=== PATIENT | female | born 1945 | race Caucasian/White ===

== ENCOUNTER 2017-01-14 01:29 | Emergency (ER) | payer MEDICARE, OTHER ==
[~2017-01-14] VITALS: Ht 157.5 cm; Wt 60.0 kg
[~2017-01-14 01:29] MED LIST: CLON-379 PO; HYDR-3498 PO; LANS30CA PO; METOPROLOL PO; MYCO360T3 PO; NIFE90TA21 PO; PRED5 PO; TACR1CAP26 PO
[2017-01-14 01:41] VITALS: Ht 157.5 cm; Wt 60.0 kg
[2017-01-14] MEDS ORDERED: SOD CHLORIDE 0.9% 1,000 ML IV STA (01:52)
[2017-01-14] MEDS ORDERED: KETOROLAC 15 MG INJ IV STA (01:52)
[2017-01-14] MEDS ORDERED: LORAZEPAM 0.5 MG TAB PO ONE (02:00)
[2017-01-14 02:22] LABS: ADD SCAN DIFF NO
[2017-01-14 02:23] LABS: BASOPHILS % 0.4 % (0.0-2.0); EOSINOPHILS # 0.1 10^3/ul (0.0-0.5); EOSINOPHILS % 1.6 % (0.0-7.0); HEMATOCRIT 32.1 % (37.0-47.0); HEMOGLOBIN 10.4 g/dl (12.0-16.0); LYMPHOCYTES % 19.4 % (15.0-51.0); MEAN CORPUSCULAR HEMOGLOBIN 29.4 pg (29.0-33.0); MEAN CORPUSCULAR HGB CONC 32.4 g/dl (32.0-37.0); MEAN CORPUSCULAR VOLUME 90.7 fl (82.0-101.0); MEAN PLATELET VOLUME 9.7 fl (7.4-10.4); MONOCYTE # 0.6 10^3/ul (0.3-0.9); MONOCYTES % 11.5 % (0.0-11.0); NEUTROPHIL # 3.2 10^3/ul (1.6-7.5); NEUTROPHILS % 65.9 % (39.0-77.0); PLATELET COUNT 132 10^3/UL (140-415); RED BLOOD COUNT 3.54 10^6/ul (4.20-5.40); RED CELL DISTRIBUTION WIDTH 14.6 % (11.5-14.5); WHITE BLOOD COUNT 4.9 10^3/ul (4.8-10.8)
[2017-01-14 02:47] LABS: ALANINE AMINOTRANSFERASE 27 IU/L (13-69); ALBUMIN 3.6 g/dl (3.3-4.9); ALBUMIN/GLOBULIN RATIO 1.24; ALKALINE PHOSPHATASE 82 IU/L (42-121); ANION GAP 10 (8-16); ASPARTATE AMINO TRANSFERASE 19 IU/L (15-46); BLOOD UREA NITROGEN 34 mg/dl (7-20); CALCIUM 9.2 mg/dl (8.4-10.2); CARBON DIOXIDE 22 mmol/L (21-31); CHLORIDE 110 mmol/L (97-110); CREATININE 1.02 mg/dl (0.44-1.00); GLUCOSE 97 mg/dl (70-220); POTASSIUM 4.2 mmol/L (3.5-5.1); SODIUM 138 mmol/L (135-144); TOTAL PROTEIN 6.5 g/dl (6.1-8.1)
[2017-01-14] MEDS ORDERED: CARI350T PO (02:58)
[2017-01-14] MEDS ORDERED: NAPR-260 PO (02:58)
--- NOTE | 2017-01-14 02:58 | ERA ---
ER Documentation Chief Complaint Date/Time DATE: 01/14/17 TIME: 02:54 Chief Complaint bib RA c/o left scapular pain radiates around to axila 3-4hrs, HPI 71-year-old woman brought in by EMS from home for complaints of left shoulder pain, anxiety, insomnia, and hypertension. She has had the shoulder pain all day long and it got worse this evening. She has had no chest pain, no fevers or chills, no headache or blurry vision, no vomiting or diarrhea. Patient was transported here by EMS without any complications. ROS All systems reviewed and are negative except as per history of present illness. Medications Home Meds Active Scripts Carisoprodol* (Soma*) 350 Mg Tablet, 350 MG PO BID Y for MUSCLE SPASMS, #15 TAB Prov:TERRA MO MD 01/14/17 Naproxen* (Naprosyn*) 500 Mg Tablet, 500 MG PO BID Y for PAIN AND/OR INFLAMMATION, #30 TAB Prov:TERRA MO MD 01/14/17 Reported Medications Cholecalciferol* (Vitamin D*) 400 Unit Tablet, 400 UNIT PO DAILY, TAB 01/14/17 Hydralazine Hcl* (Hydralazine Hcl*) 50 Mg Tab, 50 MG PO TID, #90 TAB 01/14/17 Nifedipine* (Nifedipine ER*) 90 Mg Tablet.sa, 90 MG PO DAILY, TAB.SA 07/22/15 Clonidine Hcl* (Clonidine Hcl*) 0.1 Mg Tab, 0.1 MG PO Q8 for ELEVATED SYSTOLIC BP, TAB 07/22/15 Prednisone* (Prednisone*) 5 Mg Tab, 5 MG PO DAILY, TAB 07/22/15 Mycophenolate Sodium* (Mycophenolic Acid*) 360 Mg Tablet.dr, 360 MG PO BID, TAB 07/22/15 Tacrolimus* (Prograf*) 1 Mg Capsule, 2 MG PO Q12, CAP 07/22/15 Metoprolol , 100 MG PO DAILY 01/02/11 Discontinued Reported Medications Lansoprazole* (Lansoprazole*) 30 Mg Capsule.dr, 30 MG PO DAILY, CAP 07/22/15 Discontinued Scripts Hydrocodone Bit-Acetaminophen* (Williams*) 5-325 Mg Tab, 1 TAB PO Q6 Y for PAIN, # 20 TAB Prov:SINDY ABRAHAM NP 07/22/15 Allergies Allergies: Coded Allergies: No Known Allergy (Verified Allergy, Unknown, 03/31/07) PMhx/Soc Anxiety, hypertension, gastritis History of Surgery: Yes (KIDNEY SURGERY TRANSPLANT 10/05) Anesthesia Reaction: No Hx Neurological Disorder: No Hx Respiratory Disorders: No Hx Cardiac Disorders: Yes (HTN) Hx Psychiatric Problems: No Hx Miscellaneous Medical Probl: Yes (hereditary kidney ds, 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 No submandibular induration, and no pharyngeal erythema NEURO: Alert and oriented 3, cranial nerves II through XII intact bilaterally, pupils equal round reactive to light, no focal deficits or facial asymmetry, sensation intact distally Strength 5/5 in upper and lower extremities bilaterally CARDIAC: Regular rate and rhythm, no murmurs rubs or gallops LUNGS: Clear bilaterally no wheezing crackles or stridor ABDOMEN: Soft nontender, no guarding, no rigidity, no rebound, no psoas sign no obturator sign. Normoactive bowel sounds SKIN: Warm and dry to touch, no abrasions, contusions, or hematomas, no lacerations, no ecchymosis, no target lesions, and without ulcers EXTREMITIES: No clubbing cyanosis or edema, calves are bilaterally symmetrical, no Homans sign, no popliteal cord sign. Distal pulses equal and bilateral PSYCH: Anxious Result Diagram: 01/14/17 0200 01/14/17 0200 Results 24 hrs Laboratory Tests Test 01/14/17 02:00 White Blood Count 4.910^3/ul Red Blood Count 3.5410^6/ul Hemoglobin 10.4g/dl Hematocrit 32.1% Mean Corpuscular Volume 90.7fl Mean Corpuscular Hemoglobin 29.4pg Mean Corpuscular Hemoglobin Concent 32.4g/dl Red Cell Distribution Width 14.6% Platelet Count 94803^3/UL Mean Platelet Volume 9.7fl Neutrophils % 65.9% Lymphocytes % 19.4% Monocytes % 11.5% Eosinophils % 1.6% Basophils % 0.4% Nucleated Red Blood Cells % 0.0/100WBC Neutrophils # 3.210^3/ul Lymphocytes # 1.010^3/ul Monocytes # 0.610^3/ul Eosinophils # 0.110^3/ul Basophils # 0.010^3/ul Nucleated Red Blood Cells # 0.010^3/ul Sodium Level 138mmol/L Potassium Level 4.2mmol/L Chloride Level 110mmol/L Carbon Dioxide Level 22mmol/L Anion Gap 10 Blood Urea Nitrogen 34mg/dl Creatinine 1.02mg/dl Glucose Level 97mg/dl Calcium Level 9.2mg/dl Total Bilirubin 0.0mg/dl Direct Bilirubin 0.00mg/dl Indirect Bilirubin 0.0mg/dl Aspartate Amino Transf (AST/SGOT) 19IU/L Alanine Aminotransferase (ALT/SGPT) 27IU/L Alkaline Phosphatase 82IU/L Troponin I < 0.012ng/ml Total Protein 6.5g/dl Albumin 3.6g/dl Globulin 2.90g/dl Albumin/Globulin Ratio 1.24 Lipase 149U/L Current Medications Medications (Trade) Dose Ordered Sig/Christa Route PRN Reason Start Time Stop Time Status Last Admin Dose Admin Sodium Chloride (NS) 1,000 ml @ 1,000 mls/hr Q1H STAT IV 01/14/17 01:52 01/14/17 02:51 DC 01/14/17 01:59 Ketorolac Tromethamine (Toradol) 15 mg ONCE STAT IV 01/14/17 01:52 01/14/17 01:53 DC 01/14/17 01:59 Lorazepam (Ativan) 0.5 mg ONCE ONCE PO 01/14/17 02:00 01/14/17 02:01 DC 01/14/17 01:59 Procedures/MDM IV line was established patient was placed on monitor car operator rhythm strip revealed a bradycardia at about 60 bpm with upright P and T waves. Patient was afebrile. EKG performed, read by me revealed a sinus bradycardia 54 bpm, left axis deviation, and a right ventricular conduction delay with a QRS duration of 104 ms, no concerning ST elevations or depressions noted. I administered 1 L normal saline intravenously, Toradol 15 mg IV, and lorazepam 0.5 mg p.o. with good results. Patient symptoms improved, shoulder pain improved. CBC was normal, electrolytes were fairly unremarkable but it appears she may be dehydrated, liver function tests were normal, troponin was negative. Patient's blood pressure improved. Differential diagnoses considered, included but not limited to acute coronary syndrome, pulmonary embolism, aortic dissection, abdominal aortic aneurysm, sepsis, stroke, meningitis, encephalitis, pneumonia, appendicitis, cholecystitis , bowel obstruction, pyelonephritis, nephrolithiasis, cystitis, as well as metabolic, hematologic, and electrolyte abnormalities. As well as abscess, cellulitis, fractures, and dislocations. Patient feels much better at this time, and vital signs are normal, symptoms have improved. I did give strict instructions to return to the ED if symptoms continue or worsen, patient will otherwise follow-up with primary care physician. Patient understood instructions and agreed to plan. Disclaimer: Inadvertent spelling or grammatical errors are likely due to EHR/ dictation software use and do not reflect on the overall quality of patient care. Departure Diagnosis: Primary Impression: Hypertension Qualified Code: I10 - Essential hypertension Additional Impressions: Shoulder pain Qualified Code: M25.512 - Acute pain of left shoulder Insomnia Qualified Code: F51.01 - Primary insomnia Dehydration Condition: Good TERRA MO MD January 14, 2017 02:58
[2017-01-14 02:59] LABS: TROPONIN-I < 0.012 ng/ml (0.00-0.12)
[2017-01-14 03:11] VITALS: BP 148/71; PULSE 57; RESP 20; TEMP 98.1
[2017-01-14] MEDS ORDERED: CHOL400T10 PO (03:20)
[2017-01-14] MEDS ORDERED: HYDR-3672 PO (03:20)
== END 2017-01-14 03:11 | disposition home or self-care (01) ==
LOC: E/R 01:29
DX: I10 Essential (primary) hypertension (principal); F51.01 Primary insomnia; E86.0 Dehydration
CPT/HCPCS: 80053; 83690; 84484; 85025; J1885; J7030; 36415; 93005; 96374

== ENCOUNTER 2019-01-24 23:25 | Inpatient (IN) | payer MEDICARE, OTHER ==
[~2019-01-24] VITALS: Ht 160 cm; Wt 65.2 kg
[~2019-01-24 23:25] MED LIST changes: +CARI350T PO; +CHOL400T10 PO; -HYDR-3498 PO; +HYDR-3672 PO; -LANS30CA PO; +NAPR-985 PO; -PRED5 PO; +PRED5TAB PO
[2019-01-25] MEDS ORDERED: ASPIRIN 81 MG TAB PO ONE (01:30)
[2019-01-25] MEDS ORDERED: ACETAMINOPHEN 325 MG TAB PO PRN ×2 (01:30→02:30)
[2019-01-25] MEDS ORDERED: ONDANSETRON 4 MG INJ IV PRN ×2 (01:30→02:30)
[2019-01-25] MEDS ORDERED: FUROSEMIDE 20 MG INJ IV SCH (02:30)
[2019-01-25] MEDS ORDERED: NITROGLYCERIN (SL) 0.4 MG TAB SL PRN (02:30)
[2019-01-25] MEDS ORDERED: MAGNESIUM HYDROXIDE 30ML CUP PO PRN (02:30)
[2019-01-25] MEDS ORDERED: NACL 0.9% 3 ML SYG IV SCH (02:30)
[2019-01-25] MEDS ORDERED: morphine 2 MG INJ IV PRN (02:30)
[2019-01-25] MEDS ORDERED: LORAZEPAM 2 MG INJ IV PRN (02:30)
[2019-01-25] MEDS ORDERED: hydrALAzine 20 MG INJ IV PRN (02:30)
[2019-01-25] MEDS ORDERED: HYDROCODONE/APAP (5/325) TAB PO PRN (02:30)
[2019-01-25] MEDS ORDERED: DOCUSATE SODIUM 100 MG CAP PO PRN (02:30)
[2019-01-25] MEDS ORDERED: ALBUTEROL/IPRATROPIUM (NEB) 3 ML AMP HHN PRN (02:30)
--- NOTE | 2019-01-25 03:01 | ERD ---
ER Documentation Chief Complaint Chief Complaint tachycardia/htn @ home w/ DAMIAN, SOB. no CP/weakness. took 2 50mg Metoprolol HPI 73-year-old female who presents to the emergency with palpitations. The patient has been evaluated with recent hospitalization for palpitations approximately 2 weeks ago with negative work-up. Patient recently saw her electrical unit rebuilder to 3 days ago, Dr. Parikh that was also normal. Patient today describes some palpitations it with a home monitor that showed elevated heart rate occasionally in the 150 range. The patient denied any chest pain or pressure. Currently she is asymptomatic. She denies any fevers chills or shortness of breath. The patient occasionally gets headaches with these episodes. ROS All systems reviewed and are negative except as per history of present illness. Medications Home Meds Active Scripts Carisoprodol* (Soma*) 350 Mg Tablet, 350 MG PO BID PRN for MUSCLE SPASMS, #15 TAB Prov:TERRA MO MD 01/14/17 Naproxen* (Naprosyn*) 500 Mg Tablet, 500 MG PO BID PRN for PAIN AND/OR INFLAMMA TION, #30 TAB Prov:TERRA MO MD 01/14/17 Reported Medications Cholecalciferol* (Vitamin D*) 400 Unit Tablet, 400 UNIT PO DAILY, TAB 01/14/17 Hydralazine Hcl* (Hydralazine Hcl*) 50 Mg Tab, 50 MG PO TID, #90 TAB 01/14/17 Nifedipine* (Nifedipine ER*) 90 Mg Tablet.sa, 90 MG PO DAILY, TAB.SA 07/22/15 Clonidine Hcl* (Clonidine Hcl*) 0.1 Mg Tab, 0.1 MG PO Q8 for ELEVATED SYSTOLIC BP, TAB 07/22/15 Prednisone* (Prednisone*) 5 Mg Tab, 5 MG PO DAILY, TAB 07/22/15 Mycophenolate Sodium* (Mycophenolic Acid*) 360 Mg Tablet.dr, 360 MG PO BID, TAB 07/22/15 Tacrolimus* (Prograf*) 1 Mg Capsule, 2 MG PO Q12, CAP 07/22/15 Metoprolol , 100 MG PO DAILY 01/02/11 Allergies Allergies: Coded Allergies: No Known Allergy (Verified Allergy, Unknown, 03/31/07) PMhx/Soc History of Surgery: Yes (KIDNEY SURGERY TRANSPLANT 2/15) Anesthesia Reaction: No Hx Neurological Disorder: No Hx Respiratory Disorders: No Hx Cardiac Disorders: Yes (HTN) Hx Psychiatric Problems: No Hx Miscellaneous Medical Probl: Yes (hereditary kidney ds, 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 Eyes: Pupils equally reactive, EOM intact ENT: Moist mucous membranes Neck: Supple, no lymphadenopathy Respiratory: Lungs clear bilaterally, no distress Cardiovascular: RRR, no murmurs, rubs, or gallops Abdominal: Soft, non-tender, non-distended, no peritoneal signs : Deferred MSK: No edema, no unilateral swelling, 5/5 strength Neurologic: Alert and oriented, moving all extremities, normal speech, no focal weakness, no cerebellar signs Skin: No rash Psych: Normal mood Result Diagram: 01/25/19 0005 01/25/19 0005 Results 24 hrs Laboratory Tests Test 01/25/19 00:05 White Blood Count 7.3 10^3/ul Red Blood Count 4.04 10^6/ul Hemoglobin 12.0 g/dl Hematocrit 36.7 % Mean Corpuscular Volume 90.8 fl Mean Corpuscular Hemoglobin 29.7 pg Mean Corpuscular Hemoglobin Concent 32.7 g/dl Red Cell Distribution Width 14.2 % Platelet Count 137 10^3/UL Mean Platelet Volume 9.8 fl Immature Granulocytes % 1.000 % Neutrophils % 71.2 % Lymphocytes % 17.5 % Monocytes % 9.3 % Eosinophils % 0.7 % Basophils % 0.3 % Nucleated Red Blood Cells % 0.0 /100WBC Immature Granulocytes # 0.070 10^3/ul Neutrophils # 5.2 10^3/ul Lymphocytes # 1.3 10^3/ul Monocytes # 0.7 10^3/ul Eosinophils # 0.1 10^3/ul Basophils # 0.0 10^3/ul Nucleated Red Blood Cells # 0.0 10^3/ul Sodium Level 139 mmol/L Potassium Level 3.8 mmol/L Chloride Level 106 mmol/L Carbon Dioxide Level 20 mmol/L Anion Gap 13 Blood Urea Nitrogen 53 mg/dl Creatinine 1.75 mg/dl Est Glomerular Filtrat Rate mL/min mL/min Glucose Level 232 mg/dl Calcium Level 9.3 mg/dl Troponin I 0.526 ng/ml B-Type Natriuretic Peptide 4890 PG/ML Free Thyroxine 1.38 ng/dl Current Medications Medications Dose Sig/Christa Start Time Status Last (Trade) Ordered Route PRN Stop Time Admin Dose Reason Admin Aspirin 324 mg ONCE ONCE 01/25/19 DC 01/25/19 (Aspirin) PO 01:30 01/25/19 01:32 01:31 Ondansetron 4 mg ER BRIDGE 01/25/19 HCl (Zofran PRN IV 01:30 01/26/19 Inj) NAUSEA/VOMITI 01:29 NG 650 mg ER BRIDGE 01/25/19 Acetaminophen PRN PO 01:30 01/26/19 (Tylenol .MILD PAIN 01:29 Tab) 1-3 OR TEMP IV Flush 3 ml PER 01/25/19 (NS 3 ml) PROTOCOL IV 02:30 Ondansetron 4 mg Q6H PRN 01/25/19 HCl (Zofran IV 02:30 Inj) NAUSEA/VOMITI NG 650 mg Q6H PRN 01/25/19 Acetaminophen PO .PAIN 1-3 02:30 (Tylenol OR TEMP Tab) 1 tab Q6H PRN 01/25/19 Acetaminophen PO .MOD PAIN 02:30 / 4-6 Hydrocodone Bitart ([place] (5/325)) Morphine 2 mg Q4H PRN 01/25/19 Sulfate IV .SEVERE 02:30 (morphine) PAIN 7-10 Docusate 100 mg Q12H PRN 01/25/19 Sodium PO 02:30 (Colace) .CONSTIPATION Magnesium 30 ml DAILY PRN 01/25/19 Hydroxide PO 02:30 (Milk Of Mag) .CONSTIPATION Lorazepam 0.5 mg Q6H PRN 01/25/19 (Ativan) IV ANXIETY 02:30 Albuterol/ 3 ml Q4H RESP 01/25/19 Ipratropium THERAPY PRN 02:30 (Duoneb) HHN SHORTNESS OF BREATH Hydralazine 10 mg Q6H PRN 01/25/19 HCl IV ELEVATED 02:30 (Apresoline) BLOOD PRESSURE 1 tab Q5M PRN 01/25/19 Nitroglycerin SL ANGINA 02:30 (Nitroglyceri n (Sl Tab) 0.4 Mg) Aspirin 325 mg DAILY PO 01/25/19 (Ecotrin) 09:00 Furosemide 20 mg DAILY@0600 01/25/19 (Lasix) IV 02:30 Procedures/MDM EKG, MONITORS, & DIAGNOSTIC IMAGING: EKG: I reviewed and interpreted a 12-lead EKG. Rhythm: Normal sinus rhythm ST Changes: Irregular ST segment in 1 and aVL and abnormal ST segment in lead aVR T waves: No contiguous T wave inversions Impression: Abnormal EKG Repeat EKG: EKG: I reviewed and interpreted a 12-lead EKG. Rhythm: Normal sinus rhythm ST Changes: Irregular ST segment in 1 and aVL and abnormal ST segment in lead aVR T waves: No contiguous T wave inversions Impression: Abnormal EKG Chest x-ray: I reviewed and interpreted a 1 view of the chest Mediastinum: No enlargement Cardiac silhouette: No cardiomegaly Airspace: Clear lung lee bilaterally without evidence of pneumothorax Bones: No evidence of fracture PROCEDURES: [None] LAB INTERPRETATION: * Slight troponin elevation MEDICAL DECISION MAKING: The patient's history, physical exam and clinical presentation is broad. The patient has had a work-up that includes evaluation for idiopathic tachycardia. Consider possible paroxysmal atrial fibrillation with the patient has not had a 24-hour Holter monitor without results. She had no chest pain today, cardiac etiology must be considered. I had initial conversation with Dr. Parikh and discussed that given rec ent work-up if everything is normal the patient can be safely followed in his office. He agrees. However troponin elevation prompts inpatient hospitalization The patient's initial EKGs came back abnormal. The patient had no chest pain. Dr. Pryor, on-call purchasing engineer reviewed EKGs and agrees that the patient does not need to be taken emergently to Fire Engine Pump Operator. Medical management appropriate. Based on the patient's clinical exam and history and risk factors, I have a much lower clinical concern for pulmonary embolism, acute aortic dissection, pneumothorax, pneumonia, cardiac tamponade ER COURSE: * Patient is asymptomatic. No chest pain. Aspirin provided. CONSULTATION: Interventional cardiology as documented above DISPOSITION PLAN: Telemetry admission for management of chest pain to rule out acute coronary syndrome, serial enzymes, risk stratification and consideration of provocative testing CONSULTATION: Accepting care team and consultations: I discussed the current laboratory data, diagnostic imaging and emergency care provided. Admitting team: Dr. Kumar Admitting team indication: Insurance directed Departure Diagnosis: Primary Impression: NSTEMI (non-ST elevated myocardial infarction) Additional Impression: Acute renal insufficiency Condition: Stable MAHNAZ MCMAHON MD Jan 25, 2019 03:01
[2019-01-25] MEDS ORDERED: AMLO-145 PO (03:47)
[2019-01-25] MEDS ORDERED: LOSA100T15 PO (03:47)
[2019-01-25] MEDS ORDERED: PANT40TA4 PO (03:47)
[2019-01-25] MEDS ORDERED: SITA50TA2 PO (03:47)
[2019-01-25] MEDS ORDERED: TERA5CAP3 PO (03:47)
[2019-01-25] MEDS ORDERED: METO-335 PO (03:47)
[2019-01-25] MEDS ORDERED: TERA10CA3 PO (03:47)
[2019-01-25] MEDS ORDERED: TACR0.5C18 PO (03:47)
[2019-01-25] MEDS ORDERED: FURO20TA3 PO (03:47)
[2019-01-25 05:28] VITALS: PULSE 55
[2019-01-25 05:34] VITALS: BP 143/66; PULSE 52; RESP 20
[2019-01-25 05:36] VITALS: Ht 160 cm; Wt 65.2 kg
[2019-01-25] MEDS ORDERED: PANTOPRAZOLE (EC) 40 MG TAB PO SCH (07:00)
[2019-01-25] MEDS: ATORVASTATIN 80 MG TAB PO ONE ×2 (07:06→07:08)
--- NOTE | 2019-01-25 07:19 | HP ---
DATE OF ADMISSION: 01/25/2019 This is a 73-year-old female. CHIEF COMPLAINT: Palpitations, tachycardia, shortness of breath. HISTORY OF PRESENT ILLNESS: A 73-year-old female with a past medical history of kidney transplant oc curred 4 years ago in [place], hypertension who comes in with some palpitations and chest pain. Th e patient apparently saw her outpatient greens picker, Dr. Romero almost 1 week ago and had acco rding to the family a full workup which was negative at that time. However, sometime last night gato ent had some palpitations. Denied any upper or lower GI bleeding, no nausea, vomiting, no fevers or chills, no diarrhea or constipation. She had a home monitor apparently that showed heart rate elevat ion in the 150s range, so family became concerned and decided to bring her into the ER today. She wa s also complaining of headaches. When she came in today, she was found with a creatinine of 1.75 and her troponin was elevated at 0.5 to 6 and a call was made out for the greens picker to come evaluate the patient. Signs of possible non-ST elevation myocardial infarction. She also had some positive E KG changes. The patient denies any prior history of any stroke or heart attack. PAST MEDICAL HISTORY: As above. ALLERGIES: NO KNOWN DRUG ALLERGIES. HOME MEDICATIONS: 1. Amlodipine 5 mg daily. 2. Clonidine 0.1 mg q.8h. 3. Hydralazine 50 mg t.i.d. 4. Losartan 100 mg daily. 5. Toprol-XL 25 mg daily. 6. Nifedipine 90 mg daily. 7. Terazosin 5 mg daily. 8. Naproxen 500 mg b.i.d. p.r.n. 9. Furosemide 20 mg daily. 10. Protonix 40 mg daily. 11. Januvia 50 mg daily. 12. CellCept 360 mg b.i.d. 13. Tacrolimus 2 mg q.12h. PAST SURGICAL HISTORY: Kidney transplant 4 years ago. Also, multiple abdominal surgeries. SOCIAL HISTORY: Negative for smoking, drinking, or IV drug abuse. FAMILY HISTORY: Noncontributory today. PHYSICAL EXAMINATION: VITAL SIGNS: T-max 98.4, pulse 56 to 70, respirations 23, blood pressure was 161 to 134 systolic ove r 74 to 61 diastolic, satting at 99% on 2 liters nasal cannula. GENERAL: The patient is lying in bed, answering questions appropriately. No acute distress. HEENT: Pupils equal, round, react to light. Extraocular muscles intact. NECK: Supple, no thyromegaly. LUNGS: Clear to auscultation bilaterally. CARDIOVASCULAR: S1, S2 heard. No rubs or gallops. ABDOMEN: Soft, nontender, nondistended. Normal bowel sounds. No rebound or guarding. MUSCULOSKELETAL: No lower extremity edema bilaterally. NEUROLOGIC: No focal deficits. LABORATORIES: CBC is normal except the platelets are 137. Sodium 139, potassium 3.8, chloride 106, CO2 20, BUN 53, creatinine 1.75, glucose 232. The BNP is elevated at 4890. The patient had a chest x-ray shows cardiomegaly and mild pulmonary vascular congestion. ASSESSMENT AND PLAN: 1. A 73-year-old female coming in with palpitations with signs of EKG changes and possible non-ST el evation myocardial infarction. 2. Tachycardia with shortness of breath. Again, symptoms likely secondary to a possible non-ST elev ation myocardial infarction and also mild fluid overload. We will trend the troponins q.6 hours x2 m ore. Continue high dose aspirin, morphine, oxygen, nitroglycerin. Continue home beta reagan medica tion. We will put patient on Lipitor and get a cardiology consult as well. Check TSH, A1c, lipid pa christa. Also, obtain PT, OT and speech therapy consult. 3. Renal insufficiency. Again, patient has a history of kidney transplant. Creatinine appears to b e slightly more elevated. For now for the kidney transplant, continue CellCept and tacrolimus medica tions. We will obtain a renal consult as well. 4. History of hypertension. Again, see #1. Continue current cardiac medications. Blood pressure i s stable at the present time. Dictated By: RICHA STOUT Conf#: [id number] DID#: [id number]
[2019-01-25 07:38] VITALS: BP 144/67; PULSE 52; RESP 22
[2019-01-25] MEDS ORDERED: ENOXAPARIN 80 MG/0.8 ML SYG SC ONE (08:00)
[2019-01-25] MEDS ORDERED: ENOXAPARIN 60 MG/0.6 ML SYG SC ONE (08:00)
[2019-01-25] MEDS: FUROSEMIDE 20 MG TAB PO SCH ×2 (08:26→08:31)
[2019-01-25] MEDS ORDERED: MYCOPHENOLATE (SR) 180 MG TAB PO SCH (09:00)
[2019-01-25] MEDS ORDERED: INSULIN ASPART [NOVOLOG] 3 ML PEN SC SCH (09:00)
[2019-01-25] MEDS ORDERED: METOPROLOL (XL) 25 MG TAB PO SCH (09:00)
[2019-01-25] MEDS ORDERED: TACROLIMUS 1 MG CAP PO SCH ×2 (09:00→21:00)
[2019-01-25] MEDS ORDERED: ASPIRIN (EC) 325 MG TAB PO SCH (09:00)
[2019-01-25] MEDS ORDERED: PRED5TAB PO (10:01)
[2019-01-25] MEDS ORDERED: TERI2.4P SQ (10:01)
[2019-01-25] MEDS ORDERED: CHOL200078 PO (10:01)
[2019-01-25] MEDS ORDERED: CHOLECALCIFEROL 2,000 UNIT CAP PO SCH (11:00)
[2019-01-25] MEDS ORDERED: PATIENT'S OWN MEDICATION PO SCH (11:00)
[2019-01-25] MEDS ORDERED: LINAGLIPTIN 5 MG TABLET PO SCH (11:00)
[2019-01-25] MEDS ORDERED: METOPROLOL 25 MG TAB PO SCH (11:00)
[2019-01-25] MEDS ORDERED: predniSONE 5 MG TAB PO SCH (11:00)
[2019-01-25] MEDS ORDERED: AMLODIPINE 5 MG TAB PO SCH (11:00)
--- NOTE | 2019-01-25 11:43 | DS ---
Date/Time of Note Date/Time of Note DATE: 01/25/19 TIME: 11:39 Discharge Summary Admission/Discharge Info Admit Date/Time Jan 25, 2019 at 01:21 Discharge Date/Time Jan 25, 2019 at 11:18 (AGAINST MEDICAL ADVICE) Discharge Diagnosis NSTEMI Hypertension History of renal transplant Acute kidney injury versus CKD Patient Condition: Stable Consults ,[facility] Hospital Course 73-year-old female with a past medical history of kidney transplant 4 years ago in [place], hypertension brought in by paramedics for sudden palpitation/SOB found to have acute NSTEMI... Patient was admitted. She had cardiology evaluation. Patient was continued on home medications. However, patient and family does not want to stay in [facility]. Instead, they wanted to go to [facility] where patient was recently admitted 10 days ago and her primary care doctor also goes there. Myself and dentist private practice explained in detail the risk of taking patient AGAINST MEDICAL ADVICE to another hospital when she is having an acute myocardial infarction including the possibility of during transfer process. However, patient and family are adamant on leaving hospital. They signed AGAINST MEDICAL ADVICE form and left unit. At time of discharge, patient does not have any chest pain. Her vital signs stable. Patient understood her condition and the risk of leaving AMA, including but not limited to permanent disability, etc., and had an opportunity to ask questions about own medical condition. The patient has been informed that the paient may return for care anytime and has been referred to primary care provider for follow-up as soon as possible. Patient is seen in collaboration with Dr. [facility] Reported Medications Prednisone* (Prednisone*) 5 Mg Tab, 5 MG PO DAILY, TAB 01/25/19 Cholecalciferol (Vitamin D3) (Vitamin D3) 2,000 Unit Tab.chew, 2000 UNIT PO, TAB.CHEW 01/25/19 Teriparatide (Forteo) 2.4 Ml Pen.injctr, 20 MCG SQ DAILY, EA 01/25/19 Metoprolol Succinate* (Toprol XL*) 25 Mg Tab.sr.24h, 25 MG PO BID for 30 Days 01/25/19 Amlodipine Besylate* (Amlodipine Besylate*) 5 Mg Tablet, 5 MG PO BID for 30 Days, #60 01/25/19 Sitagliptin* (Januvia*) 50 Mg Tablet, 25 MG PO DAILY for 30 Days, #30 01/25/19 Pantoprazole* (Pantoprazole*) 40 Mg Tablet.dr, 40 MG PO DAILY for 30 Days, #30 01/25/19 Furosemide* (Furosemide*) 20 Mg Tablet, 20 MG PO DAILY for 30 Days, #30 Every M-W-01/25/19 Clonidine Hcl* (Clonidine Hcl*) 0.1 Mg Tab, 0.1 MG PO Q8 PRN for ELEVATED BLOOD PRESSURE, TAB 07/22/15 Tacrolimus* (Prograf*) 1 Mg Capsule, 1.2 MG PO Q12, CAP 07/22/15 Discontinued Reported Medications Tacrolimus* (Prograf*) 0.5 Mg Capsule, 0.5 MG PO BID for 30 Days 01/25/19 Losartan Potassium* (Losartan Potassium*) 100 Mg Tablet, 100 MG PO DAILY for 30 Days, #30 01/25/19 Terazosin Hcl* (Terazosin Hcl*) 10 Mg Capsule, 10 MG PO DAILY for 30 Days, #30 01/25/19 Terazosin Hcl* (Terazosin Hcl*) 5 Mg Capsule, 5 MG PO DAILY for 30 Days, #30 01/25/19 Cholecalciferol* (Vitamin D*) 400 Unit Tablet, 400 UNIT PO DAILY, TAB 01/14/17 Hydralazine Hcl* (Hydralazine Hcl*) 50 Mg Tab, 50 MG PO TID, #90 TAB 01/14/17 Nifedipine* (Nifedipine ER*) 90 Mg Tablet.sa, 90 MG PO DAILY, TAB.SA 07/22/15 Prednisone* (Prednisone*) 5 Mg Tab, 5 MG PO DAILY, TAB 07/22/15 Mycophenolate Sodium* (Mycophenolic Acid*) 360 Mg Tablet., 360 MG PO BID, TAB 07/22/15 Metoprolol , 100 MG PO DAILY 01/02/11 Discontinued Scripts Carisoprodol* (Soma*) 350 Mg Tablet, 350 MG PO BID PRN for MUSCLE SPASMS, #15 TAB Prov:TERRA MO MD 01/14/17 Primary Care Provider Caren Dahl Pending Labs Laboratory Tests Test 01/25/19 00:05 01/25/19 05:29 01/25/19 05:31 01/25/19 06:53 White Blood 7.3 Count 10^3/ul (4.8-10 .8) Red Blood 4.04 Count 10^6/ul (4.20-5 .40) Hemoglobin 12.0 g/dl (12.0-16.0 ) Hematocrit 36.7 % (37.0-47.0) Mean 90.8 Corpuscular fl (82.0-101.0) Volume Mean 29.7 Corpuscular pg (29.0-33.0) Hemoglobin Mean 32.7 Corpuscular g/dl (32.0-37.0 Hemoglobin Conc ) ent Red Cell 14.2 Distribution % (11.5-14.5) Width Platelet Count 137 10^3/UL (140-41 5) Mean Platelet 9.8 Volume fl (7.4-10.4) Immature 1.000 Granulocytes % % (0.001-0.429) Neutrophils % 71.2 % (39.0-77.0) Lymphocytes % 17.5 % (15.0-51.0) Monocytes % 9.3 % (0.0-11.0) Eosinophils % 0.7 % (0.0-7.0) Basophils % 0.3 % (0.0-2.0) Nucleated Red 0.0 Blood Cells % /100WBC (0.0-0. 0) Immature 0.070 Granulocytes # 10^3/ul (0.0-0. 031) Neutrophils # 5.2 10^3/ul (1.6-7. 5) Lymphocytes # 1.3 10^3/ul (0.8-2. 9) Monocytes # 0.7 10^3/ul (0.3-0. 9) Eosinophils # 0.1 10^3/ul (0.0-0. 5) Basophils # 0.0 10^3/ul (0.0-0. 1) Nucleated Red 0.0 Blood Cells # 10^3/ul (0.0-0. 0) Sodium Level 139 142 mmol/L (135-144 mmol/L (135-14 ) 4) Potassium 3.8 4.5 Level mmol/L (3.5-5.1 mmol/L (3.5-5. ) 1) Chloride Level 106 107 mmol/L (97-110) mmol/L (97-110 ) Carbon Dioxide 20 23 Level mmol/L (21-31) mmol/L (21-31) Anion Gap 13 (5-13) 12 (5-13) Blood Urea 53 mg/dl (7-20) 54 Nitrogen mg/dl (7-20) Creatinine 1.75 1.60 mg/dl (0.44-1.0 mg/dl (0.44-1. 0) 00) Est Glomerular mL/min (>60) mL/min (>60) Filtrat Rate mL/min Glucose Level 232 122 mg/dl (70-220) mg/dl (70-220) Calcium Level 9.3 9.4 mg/dl (8.4-10.2 mg/dl (8.4-10. ) 2) Troponin I 0.526 1.460 1.560 ng/ml (0.000-0. ng/ml (0.000-0 ng/ml (0.000-0 120) .120) .120) B-Type 4890 Natriuretic PG/ML (0-125) Peptide Free Thyroxine 1.38 ng/dl (0.78-2.4 4) Creatine 39 40 Kinase IU/L (23-200) IU/L (23-200) Creatine Kinase 7.3 7.1 Index Creatinine 2.83 2.83 Kinase MB ng/ml (0.0-2.4 ng/ml (0.0-2.4 (Mass) ) ) Test 01/25/19 08:32 Bedside 125 Glucose mg/dL (70-220) LUZMA SALDANA NP Jan 25, 2019 11:43
--- NOTE | 2019-01-25 11:45 | RADRPT ---
Echocardiogram Report Patient Name: Steve GARCIAnt ID: [id number] : 1945 (73y 4m)Study Date: 01/25/2019 9:45:39 AM Gender: FAccession #: [id number] Tech: Abdirizak [facility] Location: [facility] Ref.Physician: BRIAN PRYOR Height(Cm): BSA: Weight(Kg): Quality: AdequateOrder Physician: BRIAN PRYOR Account #: Procedures: Echocardiographic Report: Transthoracic echocardiogram with complete 2D, M-Mode, and doppler examination. Indications: Elevated troponin. Measurements: 2D/M Mode Doppler Measurement Value Normal Range Measurement Value Normal Range LVIDd 2D 4.3 [ 3.8 - 5.2 ] cm AV Peak Sudhir 1.5 [ 100.0 - 170.0 ] cm/sec LVIDs 2D 2.7 [ 2.2 - 3.5 ] cm AV Peak PG 10.0 [ 2.0 - 9.0 ] mmHg LVPWd 2D 1.0 [ 0.6 - 0.9 ] cm LVOT Peak Sudhir 1.0 [ 70.0 - 110.0 ] cm/sec IVSd 2D 1.4 [ 0.6 - 0.9 ] cm LVOT Peak PG 4.0 [ 2.0 - 6.0 ] mmHg AoR Diam 2D 2.3 [ 2.3 - 3.1 ] cm MV E Peak Sudhir 1.1 [ 60.0 - 130.0 ] cm/sec EDV 2D 83.1 [ 46.0 - 106.0 ] ml MV A Peak Sudhir 0.8 [ 100.0 - 120.0 ] cm/sec ESV 2D 27.3 [ 14.0 - 42.0 ] ml MV E/A 1.3 [ 0.8 - 1.5 ] ratio EF 2D 67.1 [ 54.0 - 74.0 ] percent MV Decel Time 243 [ 104 - 258 ] msec LA Dimen 2D 3.4 [ 2.7 - 3.8 ] cm Lat E` Sudhir 0.1 [ 10.0 - 15.0 ] cm/sec Lateral E/E` 15.6 [ 1.0 - 2.0 ] ratio MV E/A 1.3 [ 0.8 - 1.5 ] ratio RA Pressure 8.0 mmHg Findings: Left Ventricle: Normal left ventricular systolic function. Normal left ventricular cavity size. Moderate asymmetric septal hypertrophy. Ejection fraction is visually estimated at 60 %. Tissue Doppler/Mitral Doppler indices are consistent with pseudonormalization with mildly elevated left atrial pressure (Stage II diastolic dysfunction). Right Ventricle: Normal right ventricular size. Normal right ventricular systolic function. Left Atrium: The left atrium is normal in size. Right Atrium: The right atrium is normal in size. Mitral Valve: Mild mitral leaflet calcification. Mild mitral annular calcification. Mild mitral valve regurgitation. Aortic Valve: Aortic sclerosis without significant stenosis. Mild aortic valve regurgitation. Tricuspid Valve: Normal appearance of the tricuspid valve. There is mild tricuspid regurgitation. Pericardium: Normal pericardium with no significant pericardial effusion. Aorta: Normal aortic root. IVC: Normal size with poor respiratory collapse consistent with elevated right atrial pressure. Conclusions: Normal left ventricular systolic function. Normal left ventricular cavity size. Moderate asymmetric septal hypertrophy. Ejection fraction is visually estimated at 60 %. Tissue Doppler/Mitral Doppler indices are consistent with pseudonormalization with mildly elevated left atrial pressure (Stage II diastolic dysfunction). Normal right ventricular size. Normal right ventricular systolic function. The right atrium is normal in size. The left atrium is normal in size. Mild mitral valve regurgitation. Aortic sclerosis without significant stenosis. Mild aortic valve regurgitation. There is mild tricuspid regurgitation. Normal pericardium with no significant pericardial effusion. Electronically Signed By: Brian Pryor 2019-01-25 11:43:56 PDT
--- NOTE | 2019-01-25 13:27 | CONS ---
Assessment/Plan Assessment/Plan Hospital Course (Demo Recall) Non-ST elevation myocardial infarction Palpitations Preserved left ventricular ejection fraction Acute kidney injury Hypertension History of renal transplant -Patient with palpitations and shortness of breath which have since resolved. Troponins are increased this morning. -Extensive discussion had with patient regarding troponin findings and concern for etiology either being obstructive coronary disease versus tachycardia induced. We discussed coronary angiogram. Given her abnormal renal function, there is increased risk for worsening kidney function with contrast. Patient currently is refusing angiogram requesting medical management. I have requested nephrology evaluation. -Continue aspirin therapy, start anticoagulation, statin therapy, beta-blockers heart rate and blood pressure permits Addendum Patient was initially seen this morning at approximately 7 AM, I was told in the late morning that patient left AGAINST MEDICAL ADVICE to go to a facility where her transplant physicians are. Consultation Date/Type/Reason Admit Date/Time Jan 25, 2019 at 01:21 Type of Consult Cardiology Reason for Consultation Elevated troponin Date/Time of Note DATE: 01/25/19 TIME: 13:13 Hx of Present Illness This is a 73-year-old female with past medical history of renal transplant, hypertension who presents with palpitations and shortness of breath last night. As per the patient and significant other, heart rate was up in the 150s on the home monitor. Denies any chest pain. By time patient came to emergency room, symptoms have improved. She has had these recurrent episodes of palpitations with shortness of breath. She was recently at [facility] with extensive cardiac work-up as per the patient. Denies any chest pain currently, shortness of breath, palpitations. 12 point review of systems was performed with all pertinent positives and negat elizabeth mentioned above and all else is negative Past Medical History Medical History: hypertension, renal disease Home Meds Reported Medications Prednisone* (Prednisone*) 5 Mg Tab, 5 MG PO DAILY, TAB 01/25/19 Cholecalciferol (Vitamin D3) (Vitamin D3) 2,000 Unit Tab.chew, 2000 UNIT PO, TAB.CHEW 01/25/19 Teriparatide (Forteo) 2.4 Ml Pen.injctr, 20 MCG SQ DAILY, EA 01/25/19 Metoprolol Succinate* (Toprol XL*) 25 Mg Tab.sr.24h, 25 MG PO BID for 30 Days 01/25/19 Amlodipine Besylate* (Amlodipine Besylate*) 5 Mg Tablet, 5 MG PO BID for 30 Days, #60 01/25/19 Sitagliptin* (Januvia*) 50 Mg Tablet, 25 MG PO DAILY for 30 Days, #30 01/25/19 Pantoprazole* (Pantoprazole*) 40 Mg Tablet.dr, 40 MG PO DAILY for 30 Days, #30 01/25/19 Furosemide* (Furosemide*) 20 Mg Tablet, 20 MG PO DAILY for 30 Days, #30 Every --01/25/19 Clonidine Hcl* (Clonidine Hcl*) 0.1 Mg Tab, 0.1 MG PO Q8 PRN for ELEVATED BLOOD PRESSURE, TAB 07/22/15 Tacrolimus* (Prograf*) 1 Mg Capsule, 1.2 MG PO Q12, CAP 07/22/15 Discontinued Reported Medications Tacrolimus* (Prograf*) 0.5 Mg Capsule, 0.5 MG PO BID for 30 Days 01/25/19 Losartan Potassium* (Losartan Potassium*) 100 Mg Tablet, 100 MG PO DAILY for 30 Days, #30 01/25/19 Terazosin Hcl* (Terazosin Hcl*) 10 Mg Capsule, 10 MG PO DAILY for 30 Days, #30 01/25/19 Terazosin Hcl* (Terazosin Hcl*) 5 Mg Capsule, 5 MG PO DAILY for 30 Days, #30 01/25/19 Cholecalciferol* (Vitamin D*) 400 Unit Tablet, 400 UNIT PO DAILY, TAB 01/14/17 Hydralazine Hcl* (Hydralazine Hcl*) 50 Mg Tab, 50 MG PO TID, #90 TAB 01/14/17 Nifedipine* (Nifedipine ER*) 90 Mg Tablet.sa, 90 MG PO DAILY, TAB.SA 07/22/15 Prednisone* (Prednisone*) 5 Mg Tab, 5 MG PO DAILY, TAB 07/22/15 Mycophenolate Sodium* (Mycophenolic Acid*) 360 Mg Tablet.dr, 360 MG PO BID, TAB 07/22/15 Metoprolol , 100 MG PO DAILY 01/02/11 Discontinued Scripts Carisoprodol* (Soma*) 350 Mg Tablet, 350 MG PO BID PRN for MUSCLE SPASMS, #15 TAB Prov:TERRA MO MD 01/14/17 Allergies: Coded Allergies: No Known Allergy (Unverified , 01/25/19) Past Surgical History Past Surgical Hx: other (Renal transplant x2) Family History Significant Family History: no pertinent family hx Social History Smoking Status: Never smoker Exam/Review of Systems Vital Signs Vitals Vital Signs Date Temp Pulse Resp B/P (MAP) Pulse Ox O2 O2 Flow FiO2 Time Delivery Rate 01/25/19 2.0 08:42 01/25/19 98.0 52 22 144/67 98 Nasal 07:38 (92) Cannula Exam Constitutional: alert, oriented (No apparent distress) Head: normocephalic Respiratory: other (Coarse breath sounds bilaterally, no wheezing) Cardiovascular: regular rate and rhythm (S1-S2 heard) Gastrointestinal: soft, non-tender, bowel sounds Extremities: other (No significant edema) Labs Result Diagram: 01/25/19 0005 01/25/19 0529 Results 24hrs Laboratory Tests Test 01/25/19 00:05 01/25/19 05:29 01/25/19 05:31 01/25/19 06:53 White Blood Count 7.3 # Red Blood Count 4.04 L Hemoglobin 12.0 Hematocrit 36.7 L Mean Corpuscular Volume 90.8 Mean Corpuscular 29.7 Hemoglobin Mean Corpuscular 32.7 Hemoglobin Concent Red Cell Distribution 14.2 Width Platelet Count 137 L Mean Platelet Volume 9.8 Immature Granulocytes % 1.000 H Neutrophils % 71.2 Lymphocytes % 17.5 Monocytes % 9.3 Eosinophils % 0.7 Basophils % 0.3 Nucleated Red Blood 0.0 Cells % Immature Granulocytes # 0.070 H Neutrophils # 5.2 Lymphocytes # 1.3 Monocytes # 0.7 Eosinophils # 0.1 Basophils # 0.0 Nucleated Red Blood 0.0 Cells # Sodium Level 139 142 Potassium Level 3.8 4.5 Chloride Level 106 107 Carbon Dioxide Level 20 L 23 Anion Gap 13 12 Blood Urea Nitrogen 53 H 54 H Creatinine 1.75 H 1.60 H Est Glomerular Filtrat Rate mL/min Glucose Level 232 H 122 # Calcium Level 9.3 9.4 Troponin I 0.526 *H 1.460 *H 1.560 *H B-Type Natriuretic 4890 H Peptide Free Thyroxine 1.38 Creatine Kinase 39 40 Creatine Kinase Index 7.3 7.1 Creatinine Kinase MB 2.83 H 2.83 H (Mass) Test 01/25/19 08:32 Bedside Glucose 125 Imaging Imaging ECG sinus rhythm at 64 bpm, QRS 120 ms, poor R wave progression, left ventricular hypertrophy, repol abnormalities rBian Pryor DO Jan 25, 2019 13:23
--- NOTE | 2019-01-25 14:36 | CONS ---
DATE OF ADMISSION: 01/25/2019 DATE OF CONSULTATION: 01/25/2019 TYPE OF CONSULTATION: Nephrology. REASON FOR CONSULTATION: History of chronic kidney disease. History of renal transplant. REQUESTING PHYSICIAN: Richa Vergara MD HISTORY OF PRESENT ILLNESS: This is a 73-year-old female with past medical history of kidney transpl ant 4 years ago with a baseline creatinine around 1.4 to 1.5 mg/dL, history of hypertension who prese nts to [facility] with palpitations, tachypnea and shortness of breath. The patien t states her symptoms began suddenly. As a result, she came to the Emergency Room. Upon arrival, nadir wheeler was found to have positive EKG changes, possible non-ST elevation myocardial infarction. The junior perales had elevated troponins in the Emergency Room and was transferred to telemetry for further eval uation and medical management. The patient also had chest x-ray congestion. In terms of patient's renal history, the patient is status post kidney transplant, currently on dual therapy of prednisone and Prograf. The patient has a stable allograft function per patient's at bedside. Denies any recent issues of hemoptysis, hematemesis, no hematochezia. Denies any episo ashlee of rejection. PAST MEDICAL HISTORY: History of end-stage renal disease, history of hypertension, history of CHF, h istory of diabetes. PAST SURGICAL HISTORY: Status post kidney transplant 4 years ago. SOCIAL HISTORY: Does not drink, smoke, do drugs. MEDICATIONS: The patient's medications have been reviewed. FAMILY HISTORY: No family history of kidney disease. REVIEW OF SYSTEMS: A 14-point review of systems conducted. Pertinent positives stated in HPI, other bradley negative. PHYSICAL EXAMINATION: VITAL SIGNS: Blood pressure is 144/67, respiratory rate 22, pulse 82, temperature 98.0. HEENT: Head is normocephalic. NECK: Supple. HEART: Regular rate. LUNGS: Show diminished breath sounds at base. ABDOMEN: Soft, nontender to palpation without rebound or guarding. EXTREMITIES: Negative for clubbing, cyanosis, no edema. DERMATOLOGIC: No rashes. MUSCULOSKELETAL: No joint effusions. NEUROLOGIC: No focal deficits. MEDICATIONS: Have been reviewed. LABORATORY DATA: Has been reviewed. IMAGING STUDIES: Have been reviewed. ASSESSMENT AND PLAN: This is a 73-year-old female who presents with: 1. Nonoliguric acute kidney injury on top chronic kidney disease with a history of renal transplant. The patient's baseline renal function unknown, but reportedly around 1.4 mg/dL per patient's family . Etiology of current acute kidney injury may be secondary to hemodynamics versus progression of und erlying chronic allograft failure. Recommendation at this point is to check a UA with microanalysis, check urine electrolytes. We will also check a renal ultrasound of the patient's allograft. Low mccray spicion for rejection at this time given patient's clinical presentation. Would otherwise continue s upportive care, renally dose all meds. Will monitor closely. 2. History of end-stage renal disease status post renal transplant. The patient has reportedly stab le allograft function. Currently in possible acute kidney injury as stated above. Would continue cu rrent immunosuppressive regimen. We will follow up Prograf level. Monitor closely. We will also at tempt to obtain old medical records. 3. Mineral bone disorder, monitor calcium and phosphorus levels. 4. Hypertension. Continue current blood pressure regimen. 5. Acute heart failure. The patient is clinically volume overloaded, has positive JVD. Mild edema on exam and chest x-ray that shows pulmonary congestion. We will continue current medical management . We will start the patient on diuretic therapy. 7. Elevated troponins, possible non-ST elevation myocardial infarction. Continue to trend serial tr oponin levels. Continue aspirin. Follow up with cardiology. The patient may require cardiac cathet erization; agree with Lovenox. 8. Diabetes. Continue current insulin regimen. Thank you, Dr. Vergara, for this interesting consult. It will be a pleasure to follow patient with you throughout the hospital course. Dictated By: KENA BRUNSON DO NR/NTS Conf#: [id number] DID#: [id number] CC: RICHA VERGARA;*EndCC*
[2019-01-25] MEDS ORDERED: TERAZOSIN 5 MG CAP PO SCH (21:00)
[2019-01-26] MEDS ORDERED: PATIENT'S OWN MEDICATION PO SCH (09:00)
== END 2019-01-25 11:18 | disposition left against medical advice (07) | DRG 281 ==
LOC: E/R 23:25 → 6WM 01-25 01:21
PROVIDERS: ADMIT Hospitalist; ATTEND Hospitalist
DX: I21.4 Non-ST elevation (NSTEMI) myocardial infarction (principal); N17.9 Acute kidney failure, unspecified; Z94.0 Kidney transplant status; R00.2 Palpitations; I10 Essential (primary) hypertension; E11.9 Type 2 diabetes mellitus without complications
CPT/HCPCS: 36415; 71045; 80048; 82550; 82553; 82962; 83880; 84439; 84484; 85025; 93005; 93306; J1815; J1940; J7507; J7512

== ENCOUNTER 2019-04-09 08:41 | Inpatient (IN) | payer MEDICARE, OTHER ==
[~2019-04-09] VITALS: Ht 154.9 cm; Wt 65.8 kg
[~2019-04-09 08:41] MED LIST changes: +AMIO200T4 PO; +AMLO-145 PO; +APIX5TAB PO; -CARI350T PO; +CHOL200078 PO; -CHOL400T10 PO; +FURO-109 PO; +FURO20TA3 PO; +GLIP5TAB13 PO; -HYDR-3672 PO; +METO-335 PO; +METO-429 PO; -METOPROLOL PO; -MYCO360T3 PO; -NAPR-985 PO; -NIFE90TA21 PO; +PANT40TA3 PO; +PANT40TA4 PO; +SITA50TA2 PO; +SULF1TAB31 PO; +TACR0.5C18 PO; +TERI2.4P SQ
[2019-04-09] MEDS ORDERED: SODIUM CHLORIDE 0.9% 1L BAG IV* STA (09:36)
[2019-04-09] MEDS ORDERED: CEFTRIAXONE 1 GM/50 ML (PMX) 50 ML IVPB ONE (10:00)
[2019-04-09] MEDS ORDERED: ACETAMINOPHEN 325 MG TAB ONE (10:52)
[2019-04-09] MEDS ORDERED: IBUPROFEN 600 MG TAB PO ONE (11:00)
[2019-04-09] MEDS ORDERED: ACETAMINOPHEN 325 MG TAB PO ONE (11:00)
[2019-04-09] MEDS ORDERED: FUROSEMIDE 40 MG INJ IV ONE (11:00)
[2019-04-09] MEDS ORDERED: NACL 0.9% 3 ML SYG IV SCH (14:00)
[2019-04-09] MEDS ORDERED: ACETAMINOPHEN 325 MG TAB PO PRN (14:00)
[2019-04-09] MEDS ORDERED: ONDANSETRON 4 MG INJ IV PRN (14:00)
[2019-04-09] MEDS ORDERED: DEXTROSE 50% 50 ML SYRINGE IV PRN ×2 (15:30)
[2019-04-09] MEDS ORDERED: GLUCAGON 1 MG INJ IM PRN (15:30)
[2019-04-09] MEDS ORDERED: GLUCOSE GEL 15 GRAM TUBE PO PRN ×2 (15:30)
[2019-04-09] MEDS ORDERED: GLUCOSE GEL 15 GRAM TUBE BUCCAL PRN (15:30)
[2019-04-09] MEDS: FUROSEMIDE 40 MG INJ IV SCH (17:48)
[2019-04-09] MEDS: INSULIN ASPART [NOVOLOG] 3 ML PEN SC SCH ×2 (19:15→22:44)
[2019-04-09 20:00] VITALS: Ht 154.9 cm; Wt 65.8 kg
[2019-04-09 20:31] VITALS: BP 138/63; PULSE 47; RESP 16
[2019-04-09] MEDS: TACROLIMUS 0.5 MG CAP PO SCH (21:00)
[2019-04-09] MEDS ORDERED: TACROLIMUS 0.5 MG CAP PO SCH (21:00)
[2019-04-09] MEDS: ACCU-CHEK XX SCH (21:47)
[2019-04-09] MEDS: APIXABAN 5 MG TABLET PO SCH (21:47)
[2019-04-10 00:09] VITALS: BP 132/68; PULSE 45; RESP 18
[2019-04-10 04:02] VITALS: BP 140/62; PULSE 45; RESP 16
[2019-04-10] MEDS: FUROSEMIDE 40 MG INJ IV SCH (06:05)
[2019-04-10] MEDS: ACCU-CHEK XX SCH ×2 (07:44→11:20)
[2019-04-10] MEDS: INSULIN ASPART [NOVOLOG] 3 ML PEN SC SCH ×2 (07:44→11:47)
[2019-04-10 08:31] VITALS: BP 150/66; PULSE 47; RESP 16
[2019-04-10] MEDS: APIXABAN 5 MG TABLET PO SCH (08:40)
[2019-04-10] MEDS: METOPROLOL 50 MG TAB PO SCH ×2 (08:46→09:00)
[2019-04-10] MEDS: TACROLIMUS 0.5 MG CAP PO SCH (09:00)
[2019-04-10] MEDS ORDERED: predniSONE 5 MG TAB PO SCH (09:00)
[2019-04-10] MEDS ORDERED: CEFTRIAXONE 1 GM/50 ML (PMX) 50 ML IVPB SCH (09:00)
[2019-04-10] MEDS ORDERED: glipiZIDE 5 MG TAB PO SCH (09:00)
[2019-04-10] MEDS ORDERED: AMIODARONE 200 MG TAB PO SCH (09:00)
[2019-04-10] MEDS ORDERED: PANTOPRAZOLE (EC) 40 MG TAB PO SCH (09:00)
[2019-04-16] MEDS ORDERED: APIXABAN 5 MG TABLET PO SCH (21:00)
== END 2019-04-10 12:30 | disposition home or self-care (01) | DRG 292 ==
LOC: E/R 08:41 → TEL 11:50
PROVIDERS: ADMIT Internal Medicine; ATTEND Internal Medicine
PROC: 3E0F7GC Introduction of Other Therapeutic Substance into Respiratory Tract, Via Natural or Artificial Opening (ICD-10-PCS; principal; 2019-04-09)
PROC: 5A09357 Assistance with Respiratory Ventilation, Less than 24 Consecutive Hours, Continuous Positive Airway Pressure (ICD-10-PCS; 2019-04-09)
DX: I11.0 Hypertensive heart disease with heart failure (principal); N39.0 Urinary tract infection, site not specified; Z94.0 Kidney transplant status; E86.0 Dehydration; I50.23 Acute on chronic systolic (congestive) heart failure; Z79.4 Long term (current) use of insulin; Z79.02 Long term (current) use of antithrombotics/antiplatelets
CPT/HCPCS: 36415; 71045; 80053; 80061; 81001; 82962; 83036; 83605; 83690; 83735; 83880; 84100; 84443; 84484; 85025; 85610; 85730; 87086; 93005; 94660; 96365; 96375; J0696; J1815; J1940; J7030; J7512